=== PATIENT | female | born 1995 | race Caucasian/White ===

== ENCOUNTER 2019-12-07 15:10 | Emergency (ER) | payer BC, OTHER ==
[~2019-12-07] VITALS: Ht 162.6 cm; Wt 48.1 kg
[2019-12-07 15:36] VITALS: BP_SYST 110
--- NOTE | 2019-12-07 16:00 | NUR ---
Patient to ER bed CH1 to gown for evaluation. Side rails up.
--- NOTE | 2019-12-07 16:02 | NUR ---
Patient arrived in the ED c/o sore throat and headache that started last Friday. Denied any chest pain or shortness of breath. Denied any fevers, chills, nausea or vomiting. Patient is alert and oriented x4, respirations even and unlabored, speaking in full sentences, and ambulating with a steady gait. VSS, pain level 4/10. Informed of the approximate wait time. Instructed to notify ED staff for any changes in condition or worsening of symptoms while waiting to be seen by an ED provider. Patient verbalized understanding.
--- NOTE | 2019-12-07 16:10 | NUR ---
ER Dr. Kaur at bedside examining patient.
[2019-12-07 17:58] VITALS: BP_SYST 110
--- NOTE | 2019-12-07 17:59 | NUR ---
Patient given written and verbal discharge instructions and verbalizes understanding. ER MD discussed with patient the results and treatment provided. Patient in stable condition. ID arm band removed. Rx of AMOXICILLIN given. Patient educated on pain management and to follow up with PMD. Pain Scale 0/10. Opportunity for questions provided and answered. Medication side effect fact sheet provided.
== END 2019-12-07 17:58 | disposition home or self-care (01) ==
LOC: SED 15:10
DX: J02.9 Acute pharyngitis, unspecified (principal)
CPT/HCPCS: 99283